=== PATIENT | male | born 1970 | race Caucasian/White ===

== ENCOUNTER 2025-06-22 15:30 | Outpatient (RCR) | payer SELFPAY | END 2025-07-06 23:59 | disposition home or self-care (01) | LOC: CR 15:30 | PROVIDERS: PCP Thoracic Surgery (Cardiothoracic Vascular Surgery); Referring Provider Thoracic Surgery (Cardiothoracic Vascular Surgery); Visit Provider Thoracic Surgery (Cardiothoracic Vascular Surgery) | DX: I25.2 Old myocardial infarction (principal) | CPT/HCPCS: 93798 ==

== ENCOUNTER 2025-07-07 12:39 | Outpatient (RCR) | payer BC, MEDICAID, SELFPAY | END 2025-08-06 23:59 | disposition home or self-care (01) | LOC: CR 12:39 | PROVIDERS: PCP Thoracic Surgery (Cardiothoracic Vascular Surgery); Referring Provider Thoracic Surgery (Cardiothoracic Vascular Surgery); Visit Provider Thoracic Surgery (Cardiothoracic Vascular Surgery) | DX: I25.2 Old myocardial infarction (principal) | CPT/HCPCS: 93798 ==

== ENCOUNTER 2025-08-07 13:23 | Outpatient (RCR) | payer BC, MEDICAID, SELFPAY | END 2025-09-05 23:59 | disposition home or self-care (01) | LOC: CR 13:23 | PROVIDERS: PCP Thoracic Surgery (Cardiothoracic Vascular Surgery); Referring Provider Thoracic Surgery (Cardiothoracic Vascular Surgery); Visit Provider Thoracic Surgery (Cardiothoracic Vascular Surgery) | DX: I25.2 Old myocardial infarction (principal) | CPT/HCPCS: 93798 ==

== ENCOUNTER 2025-09-06 11:07 | Outpatient (RCR) | payer BC, MEDICAID, SELFPAY | END 2025-10-06 23:59 | disposition home or self-care (01) | LOC: CR 11:07 | PROVIDERS: PCP Thoracic Surgery (Cardiothoracic Vascular Surgery); Referring Provider Thoracic Surgery (Cardiothoracic Vascular Surgery); Visit Provider Thoracic Surgery (Cardiothoracic Vascular Surgery) | DX: I25.2 Old myocardial infarction (principal) | CPT/HCPCS: 93798 ==